=== PATIENT | male | born 1965 | race Caucasian/White ===

== ENCOUNTER 2019-09-04 13:14 | Emergency (ER) | payer MEDICARE, MEDICAID, SELFPAY ==
[2019-09-04 13:33] VITALS: BP 99/64; PULSE 98; RESP 18; TEMP 36.9; O2SAT 98; BMI 22.8
--- NOTE | 2019-09-04 14:41 | ED_ITS ---
Documented by User: [email or web address] Devi 09/05/19 07:01 HPI - Male Genitourinary General: Chief complaint: Abdominal Pain Stated complaint: flank pain, N,V Time Seen by Provider: 09/04/19 14:29 Source: patient Mode of arrival: ambulatory Limitations: no limitations History of Present Illness: HPI Narrative: Patient is a 54-year-old male who presents to ED today with a complaint of right flank pain over the past 3 to 4 days. Patient for some reason seems to think this is related to him spreading rat poison on weeds 3 to 4 days ago. He seems to think that some of this absorbed into his skin and is now causing his pain. He tells me he is having severe right flank pain with difficulty with urination. He reports nausea with 2 episodes of nonbloody vomit. Defecation habits have been normal. He is not running fevers. He denies history of kidney stones. He is not having testicular pain or swelling. MD Complaint: other (R flank pain; difficulty with urination) Onset (ago): day(s) Duration: constant Location: right flank Radiation: abdomen Severity: severe Quality: sharp and stabbing Relieving factors: none Exacerbating factors: urination Associated symptoms: Reports dysuria, nausea and vomiting Review of Systems Const: Denies: fever(s), chills, body aches, fatigue or malaise Eyes: Denies: change in vision, blurry vision, photophobia, floaters or seeing flashes Card: Denies: chest pain, palpitations, irregular heart rhythm, lightheadedness, syncope or dyspnea on exertion Resp: Denies: dyspnea, productive cough or pain on inspiration GI: Reports: abdominal pain, nausea and vomiting; Denies: coffee ground emesis, heartburn, early satiety, diarrhea, constipation, change in bowel habits, rectal swelling, rectal itching, change in stool character, hematochezia, mucus in stool, white/light colored stool or steatorrhea : Reports: flank pain, difficulty urinating, dysuria and urinary hesitancy; Denies: urinary frequency or urinary urgency Musc: Reports: back pain (R flank pain); Denies: neck pain or joint pain Skin/Breast: Denies: rash Neuro: Denies: headache(s), numbness in extremities, weakness in extremities or sensory changes PFSH ED PFSH: Social History Smoking and tobacco status: current every day smoker Physical Exam 2 Const: COMMON NORMALS: patient oriented x3, no limitations and alert GENERAL APPEARANCE: cooperative, in distress (due to pain-holding R flank ) and disheveled HENMT: COMMON NORMALS: normocephalic and atraumatic HEAD & SCALP: normocephalic and atraumatic Resp: COMMON NORMALS: normal respiratory effort and clear to auscultation bilaterally AUSCULTATION: clear to auscultation bilaterally Cardio: COMMON NORMALS: regular rate and regular rhythm RATE: regular rate RHYTHM: regular rhythm GI: COMMON NORMALS: Normal to inspection, nondistended, normoactive bowel sounds present, No hepatosplenomegaly present and no masses AUSCULTATION: Yes normoactive bowel sounds PALPATION: Yes Tenderness to palpation present (GI) (throughout abdomen but more so to R side; guarding present) and Yes No hepatosplenomegaly present : BLADDER/KIDNEY EXAM: Yes CVA tenderness on the right Back/Pelvis: GENERAL BACK: Yes CVA tenderness Extremity: COMMON NORMALS: normal to inspection GENERAL: Yes normal exam except as noted Neuro: COMMON NORMALS: patient oriented x3 SENSORIUM/ORIENTATION: Yes alert Skin: COMMON NORMALS: no rashes or lesions noted GENERAL SKIN EXAM: no rashes or lesions noted Course Vital Signs: Vital signs: Vital Signs Temperature 98.5 F 09/04/19 13:33 Pulse Rate 78 09/04/19 18:42 Respiratory Rate 18 09/04/19 18:42 Blood Pressure 114/75 09/04/19 18:42 Pulse Oximetry 100 09/04/19 18:42 MDM - Male Lab Data: Labs: Lab Results 09/04/19 09/04/19 09/04/19 Range/Units 14:30 14:30 15:00 WBC 13.4 H (4.0-10.0) 10^3/ uL RBC 3.76 L (4.1-5.3) 10^6/u L Hgb 11.8 (11.7-16.6) g/dL Hct 35.6 L (42.0-52.0) % MCV 94.7 H (80-94) fL MCH 31.4 (28.0-34.0) pg MCHC 33.1 (30.0-36.0) g/dL RDW 13.8 (12.1-15.1) % Plt Count 289 (130-400) 10^3/c mm MPV 8.5 (7.4-10.4) fL Neut % (Auto) 74.8 % Lymph % (Auto) 11.1 % [place] % (Auto) 13.2 % Eos % (Auto) 0.4 % Baso % (Auto) 0.1 % Neut # (Auto) 10.0 H (1.8-7.7) 10^3/u L Lymph # (Auto) 1.5 (0.8-4.8) 10^3/u L [place] # (Auto) 1.8 H (0.2-0.9) 10^3/u L Eos # (Auto) 0.1 (0.0-0.8) 10^3/u L Baso # (Auto) 0.0 (0.0-0.1) 10^3/u L Nucleated RBC % (a uto) 0 % Nucleated RBCs # 0.0 /100WBC PT (10.5-13.3) SECO NDS INR (0.8-1.2) APTT (23.9-36.7) SECO NDS Sodium (136-145) mmol/L Potassium (3.5-5.1) mmol/L Chloride (98-107) mmol/L Carbon Dioxide (22-29) mmol/L Anion Gap (5-19) BUN (6-20) mg/dL Creatinine (0.7-1.2) mg/dL GFR Calculation (90-130) mL/min Glucose (65-115) mg/dL Calculated Osmolal ity (285-295) mOsm/k g Lactate (0.5-2.2) mmol/L Calcium (8.5-10.5) mg/dL Total Bilirubin (0.15-1.2) mg/dL AST (0-40) U/L ALT (0-41) U/L Alkaline Phosphata se (40-130) IU/L Total Protein (6.6-8.7) g/dL Albumin (3.5-5.2) g/dL Globulin (1.3-4.6) g/dL Urine Color Yellow (Yellow) Urine Appearance Cloudy (CLEAR) Urine pH 5 (5-7) Ur Specific Gravit y 1.010 (1.005-1.030) Urine Protein Neg (Negative) Urine Glucose (UA) Norm (Normal) Urine Ketones Negative (Negative) Urine Blood Trace H (Negative) Urine Nitrate Negative (Negative) Urine Bilirubin Neg (NEGATIVE) Urine Urobilinogen 1 H (Negative) mg/dL Ur Leukocyte Geovanna ase 2+ H (Negative) Urine RBC 0-4 H (0-2) /hpf Urine WBC Too numerous to c nt H (0-5) /hpf Ur Squamous Epith Cells 0-4 H (0-5) Ur Transition Epit h Cell 0-4 /hpf Urine Bacteria 4+ H (NONE) Urine Opiates Scre en Positive H (Negative) ng/mL Ur Barbiturates Sc reen Negative (Negative) ng/mL Ur Phencyclidine S crn Negative (Negative) ng/mL Ur Amphetamines Sc reen Positive H (Negative) ng/mL U Benzodiazepines Scrn Negative (Negative) ng/mL Urine Cocaine Scre en Negative (Negative) ng/mL U Marijuana (THC) Screen Positive H (Negative) ng/mL 09/04/19 09/04/19 09/04/19 Range/Units 15:00 15:00 15:00 WBC (4.0-10.0) 10^3/ uL RBC (4.1-5.3) 10^6/u L Hgb (11.7-16.6) g/dL Hct (42.0-52.0) % MCV (80-94) fL MCH (28.0-34.0) pg MCHC (30.0-36.0) g/dL RDW (12.1-15.1) % Plt Count (130-400) 10^3/c mm MPV (7.4-10.4) fL Neut % (Auto) % Lymph % (Auto) % [place] % (Auto) % Eos % (Auto) % Baso % (Auto) % Neut # (Auto) (1.8-7.7) 10^3/u L Lymph # (Auto) (0.8-4.8) 10^3/u L [place] # (Auto) (0.2-0.9) 10^3/u L Eos # (Auto) (0.0-0.8) 10^3/u L Baso # (Auto) (0.0-0.1) 10^3/u L Nucleated RBC % (a uto) % Nucleated RBCs # /100WBC PT 13.50 H (10.5-13.3) SECO NDS INR 1.00 (0.8-1.2) APTT 34.4 (23.9-36.7) SECO NDS Sodium 129 L (136-145) mmol/L Potassium 4.4 (3.5-5.1) mmol/L Chloride 93 L (98-107) mmol/L Carbon Dioxide 24 (22-29) mmol/L Anion Gap 16.4 (5-19) BUN 20 (6-20) mg/dL Creatinine 0.9 (0.7-1.2) mg/dL GFR Calculation 88.3 L (90-130) mL/min Glucose 122 H (65-115) mg/dL Calculated Osmolal ity 266 L (285-295) mOsm/k g Lactate 0.9 (0.5-2.2) mmol/L Calcium 8.2 L (8.5-10.5) mg/dL Total Bilirubin 0.4 (0.15-1.2) mg/dL AST 43 H (0-40) U/L ALT 43 H (0-41) U/L Alkaline Phosphata se 133 H (40-130) IU/L Total Protein 6.6 (6.6-8.7) g/dL Albumin 3.5 (3.5-5.2) g/dL Globulin 3.1 (1.3-4.6) g/dL Urine Color (Yellow) Urine Appearance (CLEAR) Urine pH (5-7) Ur Specific Gravit y (1.005-1.030) Urine Protein (Negative) Urine Glucose (UA) (Normal) Urine Ketones (Negative) Urine Blood (Negative) Urine Nitrate (Negative) Urine Bilirubin (NEGATIVE) Urine Urobilinogen (Negative) mg/dL Ur Leukocyte Geovanna ase (Negative) Urine RBC (0-2) /hpf Urine WBC (0-5) /hpf Ur Squamous Epith Cells (0-5) Ur Transition Epit h Cell /hpf Urine Bacteria (NONE) Urine Opiates Scre en (Negative) ng/mL Ur Barbiturates Sc reen (Negative) ng/mL Ur Phencyclidine S crn (Negative) ng/mL Ur Amphetamines Sc reen (Negative) ng/mL U Benzodiazepines Scrn (Negative) ng/mL Urine Cocaine Scre en (Negative) ng/mL U Marijuana (THC) Screen (Negative) ng/mL Discharge Plan Discharge Patient Disposition: Home, Self-Care Clinical Impression: Pyelonephritis Condition: Stable Prescriptions: New cephalexin 500 mg capsule 500 mg PO TID 10 Days Qty: 30 RF: 0 hydrocodone-acetaminophen 5-325 mg tablet 1 tab PO Q8H PRN (Reason: pain, severe) Qty: 7 RF: 0 ondansetron HCl 4 mg tablet 4 mg PO Q8H PRN (Reason: nausea and vomiting) Qty: 7 RF: 0 No Action furosemide 40 mg tablet 40 mg PO DAILY RF: 0 carvedilol 12.5 mg tablet 12.5 mg PO BID RF: 0 spironolactone 25 mg tablet 25 mg PO DAILY RF: 0 simvastatin 40 mg tablet 40 mg PO DAILY RF: 0 levothyroxine 25 mcg tablet 25 mcg PO DAILY RF: 0 trazodone 100 mg tablet 100 mg PO BEDTIME PRN (Reason: Sleep) RF: 0 lisinopril 10 mg tablet 10 mg PO DAILY RF: 0 Discharge Orders: Discharge Order (Routine); Ordered 09/04/19 Ordered By: Tello Lowery Referrals: Mona Tan APN [Primary Care Provider] - Discharge Diet: Usual diet Discharge Activity: Increase activity as tolerated Patient Instructions: Urinary Tract Infection in Men (ED) Activity Restrictions/Additional Instructions: Drink plenty of water. Take medications as directed. Follow-up with primary care in 1 week for recheck. Return to the ER for worsening symptoms or inability to hold down medication. Discharge Date/Time: 09/04/19 18:40 Coding Level of Care Code ED A/C Technician for Chg 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 Documented by User: [email or web address] Ruth 09/04/19 18:39 HPI - Male Genitourinary General: Chief complaint: Abdominal Pain Stated complaint: flank pain, N,V Time Seen by Provider: 09/04/19 14:29 [facility] ED PFSH: Social History Smoking and tobacco status: current every day smoker Course ED course: 1700, received patient from Sonya Joseph, physician assistant casino shift manager. Awaiting CT report. Patient is believed to have a urinary tract infection with some mild pyelonephritis. After repeat CT report expect to release patient to home.[email or web address] Vital Signs: Vital signs: Vital Signs Temperature 98.5 F 09/04/19 13:33 Pulse Rate 78 09/04/19 18:42 Respiratory Rate 18 09/04/19 18:42 Blood Pressure 114/75 09/04/19 18:42 Pulse Oximetry 100 09/04/19 18:42 MDM - Male MDM Narrative: Medical decision making narrative: Patient came in today with abdominal pain and nausea and vomiting. Patient appears unwell. Patient had been given IV fluids and antibiotic and medication for pain and nausea. CT scan noted pyelonephritis. Urinalysis showed a large amount of white blood cells. Patient was medicated in the emergency room with Rocephin. Patient was reviewed care plan for home. Patient reported understanding of care plan and need for follow-up or return to the ER. Differential diagnosis included but not limited to UTI, pyelonephritis, appendicitis, renal cyst/abscess. Lab Data: Labs: Lab Results 09/04/19 09/04/19 09/04/19 Range/Units 14:30 14:30 15:00 WBC 13.4 H (4.0-10.0) 10^3/ uL RBC 3.76 L (4.1-5.3) 10^6/u L Hgb 11.8 (11.7-16.6) g/dL Hct 35.6 L (42.0-52.0) % MCV 94.7 H (80-94) fL MCH 31.4 (28.0-34.0) pg MCHC 33.1 (30.0-36.0) g/dL RDW 13.8 (12.1-15.1) % Plt Count 289 (130-400) 10^3/c mm MPV 8.5 (7.4-10.4) fL Neut % (Auto) 74.8 % Lymph % (Auto) 11.1 % [place] % (Auto) 13.2 % Eos % (Auto) 0.4 % Baso % (Auto) 0.1 % Neut # (Auto) 10.0 H (1.8-7.7) 10^3/u L Lymph # (Auto) 1.5 (0.8-4.8) 10^3/u L [place] # (Auto) 1.8 H (0.2-0.9) 10^3/u L Eos # (Auto) 0.1 (0.0-0.8) 10^3/u L Baso # (Auto) 0.0 (0.0-0.1) 10^3/u L Nucleated RBC % (a uto) 0 % Nucleated RBCs # 0.0 /100WBC PT (10.5-13.3) SECO NDS INR (0.8-1.2) APTT (23.9-36.7) SECO NDS Sodium (136-145) mmol/L Potassium (3.5-5.1) mmol/L Chloride (98-107) mmol/L Carbon Dioxide (22-29) mmol/L Anion Gap (5-19) BUN (6-20) mg/dL Creatinine (0.7-1.2) mg/dL GFR Calculation (90-130) mL/min Glucose (65-115) mg/dL Calculated Osmolal ity (285-295) mOsm/k g Lactate (0.5-2.2) mmol/L Calcium (8.5-10.5) mg/dL Total Bilirubin (0.15-1.2) mg/dL AST (0-40) U/L ALT (0-41) U/L Alkaline Phosphata se (40-130) IU/L Total Protein (6.6-8.7) g/dL Albumin (3.5-5.2) g/dL Globulin (1.3-4.6) g/dL Urine Color Yellow (Yellow) Urine Appearance Cloudy (CLEAR) Urine pH 5 (5-7) Ur Specific Gravit y 1.010 (1.005-1.030) Urine Protein Neg (Negative) Urine Glucose (UA) Norm (Normal) Urine Ketones Negative (Negative) Urine Blood Trace H (Negative) Urine Nitrate Negative (Negative) Urine Bilirubin Neg (NEGATIVE) Urine Urobilinogen 1 H (Negative) mg/dL Ur Leukocyte Geovanna ase 2+ H (Negative) Urine RBC 0-4 H (0-2) /hpf Urine WBC Too numerous to c nt H (0-5) /hpf Ur Squamous Epith Cells 0-4 H (0-5) Ur Transition Epit h Cell 0-4 /hpf Urine Bacteria 4+ H (NONE) Urine Opiates Scre en Positive H (Negative) ng/mL Ur Barbiturates Sc reen Negative (Negative) ng/mL Ur Phencyclidine S crn Negative (Negative) ng/mL Ur Amphetamines Sc reen Positive H (Negative) ng/mL U Benzodiazepines Scrn Negative (Negative) ng/mL Urine Cocaine Scre en Negative (Negative) ng/mL U Marijuana (THC) Screen Positive H (Negative) ng/mL 09/04/19 09/04/19 09/04/19 Range/Units 15:00 15:00 15:00 WBC (4.0-10.0) 10^3/ uL RBC (4.1-5.3) 10^6/u L Hgb (11.7-16.6) g/dL Hct (42.0-52.0) % MCV (80-94) fL MCH (28.0-34.0) pg MCHC (30.0-36.0) g/dL RDW (12.1-15.1) % Plt Count (130-400) 10^3/c mm MPV (7.4-10.4) fL Neut % (Auto) % Lymph % (Auto) % [place] % (Auto) % Eos % (Auto) % Baso % (Auto) % Neut # (Auto) (1.8-7.7) 10^3/u L Lymph # (Auto) (0.8-4.8) 10^3/u L [place] # (Auto) (0.2-0.9) 10^3/u L Eos # (Auto) (0.0-0.8) 10^3/u L Baso # (Auto) (0.0-0.1) 10^3/u L Nucleated RBC % (a uto) % Nucleated RBCs # /100WBC PT 13.50 H (10.5-13.3) SECO NDS INR 1.00 (0.8-1.2) APTT 34.4 (23.9-36.7) SECO NDS Sodium 129 L (136-145) mmol/L Potassium 4.4 (3.5-5.1) mmol/L Chloride 93 L (98-107) mmol/L Carbon Dioxide 24 (22-29) mmol/L Anion Gap 16.4 (5-19) BUN 20 (6-20) mg/dL Creatinine 0.9 (0.7-1.2) mg/dL GFR Calculation 88.3 L (90-130) mL/min Glucose 122 H (65-115) mg/dL Calculated Osmolal ity 266 L (285-295) mOsm/k g Lactate 0.9 (0.5-2.2) mmol/L Calcium 8.2 L (8.5-10.5) mg/dL Total Bilirubin 0.4 (0.15-1.2) mg/dL AST 43 H (0-40) U/L ALT 43 H (0-41) U/L Alkaline Phosphata se 133 H (40-130) IU/L Total Protein 6.6 (6.6-8.7) g/dL Albumin 3.5 (3.5-5.2) g/dL Globulin 3.1 (1.3-4.6) g/dL Urine Color (Yellow) Urine Appearance (CLEAR) Urine pH (5-7) Ur Specific Gravit y (1.005-1.030) Urine Protein (Negative) Urine Glucose (UA) (Normal) Urine Ketones (Negative) Urine Blood (Negative) Urine Nitrate (Negative) Urine Bilirubin (NEGATIVE) Urine Urobilinogen (Negative) mg/dL Ur Leukocyte Geovanna ase (Negative) Urine RBC (0-2) /hpf Urine WBC (0-5) /hpf Ur Squamous Epith Cells (0-5) Ur Transition Epit h Cell /hpf Urine Bacteria (NONE) Urine Opiates Scre en (Negative) ng/mL Ur Barbiturates Sc reen (Negative) ng/mL Ur Phencyclidine S crn (Negative) ng/mL Ur Amphetamines Sc reen (Negative) ng/mL U Benzodiazepines Scrn (Negative) ng/mL Urine Cocaine Scre en (Negative) ng/mL U Marijuana (THC) Screen (Negative) ng/mL Discharge Plan Discharge Patient Disposition: Home, Self-Care Clinical Impression: Pyelonephritis Condition: Stable Prescriptions: New cephalexin 500 mg capsule 500 mg PO TID 10 Days Qty: 30 RF: 0 hydrocodone-acetaminophen 5-325 mg tablet 1 tab PO Q8H PRN (Reason: pain, severe) Qty: 7 RF: 0 ondansetron HCl 4 mg tablet 4 mg PO Q8H PRN (Reason: nausea and vomiting) Qty: 7 RF: 0 No Action furosemide 40 mg tablet 40 mg PO DAILY RF: 0 carvedilol 12.5 mg tablet 12.5 mg PO BID RF: 0 spironolactone 25 mg tablet 25 mg PO DAILY RF: 0 simvastatin 40 mg tablet 40 mg PO DAILY RF: 0 levothyroxine 25 mcg tablet 25 mcg PO DAILY RF: 0 trazodone 100 mg tablet 100 mg PO BEDTIME PRN (Reason: Sleep) RF: 0 lisinopril 10 mg tablet 10 mg PO DAILY RF: 0 Discharge Orders: Discharge Order (Routine); Ordered 09/04/19 Ordered By: Tello Lowery Referrals: Mona Tan APN [Primary Care Provider] - Discharge Diet: Usual diet Discharge Activity: Increase activity as tolerated Patient Instructions: Urinary Tract Infection in Men (ED) Activity Restrictions/Additional Instructions: Drink plenty of water. Take medications as directed. Follow-up with primary care in 1 week for recheck. Return to the ER for worsening symptoms or inability to hold down medication. Discharge Date/Time: 09/04/19 18:40 Coding Level of Care Code ED A/C Technician for Alicia 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
[2019-09-04] MEDS: sodium chloride 0.9% 1,000 ML 999 ML IV (15:02)
[2019-09-04 15:03] VITALS: RESP 20
[2019-09-04] MEDS: ondansetron 2 mg/ML SDV 2 mL 4 MG IVP (15:03)
[2019-09-04] MEDS: morphine 4 mg/mL SDV 1 mL IVP (15:03)
[2019-09-04 15:05] LABS: Urine Appearance Cloudy (CLEAR); Urine Color Yellow (Yellow)
[2019-09-04 15:06] LABS: Add Urine Microscopic? YES; Bilirubin Urine Neg (NEGATIVE); Blood Urine Trace (Negative); Glucose Urine UA Norm (Normal); Ketones Urine Negative (Negative); Leukocyte Esterase Urine 2+ (Negative); Nitrate Urine Negative (Negative); Protein Urine Neg (Negative); Urobilinogen Urine 1 mg/dL (Negative); pH Urine 5 (5-7)
--- NOTE | 2019-09-04 15:18 | CTR_ITS ---
PROCEDURE INFORMATION: Exam: CT Abdomen And Pelvis With Contrast Exam date and time: 09/04/2019 3:21 PM Age: 54 years old Clinical indication: Abdominal pain; Additional info: R flank/abdominal pain TECHNIQUE: Imaging protocol: Computed tomography of the abdomen and pelvis with intravenous contrast. Radiation optimization: All CT scans at this facility use at least one of these dose optimization techniques: automated exposure control; mA and/or kV adjustment per patient size (includes targeted exams where dose is matched to clinical indication); or iterative reconstruction. Contrast material: OMNI 300; Contrast volume: 95 ml; Contrast route: IV COMPARISON: CT Abdomen/Pelvis Renal [id number] 02/03/2014 7:54 AM FINDINGS: There appear to be ill-defined areas of heterogeneous density in each kidney, mainly mid to upper portions, may indicate inflammation/infection, please correlate clinically. Gallbladder is very contracted. Liver, spleen, pancreas, and adrenal glands appear grossly unremarkable. Appendix appears grossly unremarkable. Bowel loops do not appear significantly dilated. A moderate amount of stool is demonstrated. No large amount of free fluid demonstrated. Abdominal aorta does not appear dilated. There is mild anterolisthesis of L5 on S1 from bilateral pars defects at L5. There are degenerative changes in the lumbar spine. Partly demonstrated is probable scarring at visualized left lung base and right middle lobe. Cardiac pacing leads are partly demonstrated. CT/CT abdomen pelvis w con* [id number] IMPRESSION: There appear to be ill-defined areas of heterogeneous density in each kidney, mainly mid to upper portions, may indicate inflammation/infection, please correlate clinically. A moderate amount of stool is demonstrated. There is mild anterolisthesis of L5 on S1 from bilateral pars defects at L5. Total DLP: 533.15 mGy-cm Radiation Dose CTDIVOL = (mGy): DLP = 533.15 (mGy-cm)
[2019-09-04 15:19] LABS: Basophils % 0.1 %; Eosinophils # 0.1 10^3/uL (0.0-0.8); Eosinophils % 0.4 %; Hematocrit 35.6 % (42.0-52.0); Hemoglobin 11.8 g/dL (11.7-16.6); Lymphocytes # 1.5 10^3/uL (0.8-4.8); Lymphocytes % 11.1 %; Mean Corpuscular HGB Conc 33.1 g/dL (30.0-36.0); Mean Corpuscular Hemoglobin 31.4 pg (28.0-34.0); Mean Corpuscular Volume 94.7 fL (80-94); Mean Platelet Volume 8.5 fL (7.4-10.4); Monocytes # 1.8 10^3/uL (0.2-0.9); Monocytes % 13.2 %; Neutrophils % 74.8 %; Nucleated Red Blood Cells % 0 %; Platelet Count 289 10^3/cmm (130-400); Red Blood Count 3.76 10^6/uL (4.1-5.3); Red Cell Distribution Width 13.8 % (12.1-15.1); White Blood Count 13.4 10^3/uL (4.0-10.0)
[2019-09-04 15:26] LABS: Add Urine Culture? Yes; Bacteria Urine 4+; RBC Urine 0-4 /hpf (0-2); Squamous Epithelial Cell Urine 0-4 (0-5); Transitional Epi Cells Urine 0-4 /hpf; WBC Urine TOO NUMEROUS TO CNT /hpf (0-5)
[2019-09-04 15:27] LABS: Partial Thromboplastin Time 34.4 SECONDS (23.9-36.7)
[2019-09-04 15:32] LABS: Lactate (Lactic Acid level) 0.9 mmol/L (0.5-2.2)
[2019-09-04 15:33] LABS: Alanine Aminotransferase 43 U/L (0-41); Albumin Level 3.5 g/dL (3.5-5.2); Alkaline Phosphatase 133 IU/L (40-130); Anion Gap 16.4 (5-19); Aspartate Amino Transferase 43 U/L (0-40); Blood Urea Nitrogen 20 mg/dL (6-20); Calcium 8.2 mg/dL (8.5-10.5); Carbon Dioxide 24 mmol/L (22-29); Chloride 93 mmol/L (98-107); Globulin 3.1 g/dL (1.3-4.6); Glomerular Filtration Rate 88.3 mL/min (90-130); Glucose 122 mg/dL (65-115); Osmolality Calculated 266 mOsm/kg (285-295); Potassium 4.4 mmol/L (3.5-5.1); Sodium 129 mmol/L (136-145); Total Bilirubin 0.4 mg/dL (0.15-1.2); Total Protein 6.6 g/dL (6.6-8.7)
[2019-09-04 15:35] LABS: Amphetamines Screen Urine Positive (Negative); Barbiturates Screen Urine Negative (Negative); Benzodiazepines Screen Urine Negative (Negative); Cocaine Screen Urine Negative (Negative); PCP Screen Urine Negative (Negative); THC Screen Urine Positive (Negative)
[2019-09-04] MEDS: cefTRIAXone 1,000 MG in sodium chloride 0.9% (plus) 50 ML 100 MG IV (15:54)
[2019-09-04] MEDS: iohexol 300 mg/mL 100 mL Btl IV (16:23)
[2019-09-04 16:51] VITALS: BP 97/63; PULSE 76; RESP 18; O2SAT 100
[2019-09-04 18:01] LABS: Opiate Screen Urine Positive (Negative)
[2019-09-04] MEDS: HYDROcodone-acetaminophen 5-325 mg Tablet 1 TAB PO (18:22)
[2019-09-04 18:42] VITALS: BP 114/75; PULSE 78; RESP 18; O2SAT 100
== END 2019-09-04 18:40 | disposition home or self-care (01) ==
PROVIDERS: Emergency Medicine; Physician Assistant; Emergency Provider Nurse Practitioner Family; PCP Nurse Practitioner Family
DX: N12 Tubulo-interstitial nephritis, not specified as acute or chronic (principal); F17.210 Nicotine dependence, cigarettes, uncomplicated; Z79.899 Other long term (current) drug therapy
CPT/HCPCS: 12345; 74177; 80053; 80306; 81001; 83605; 85025; 85610; 85730; 87040; 87077; 87086; 87186; 87205; 96365; 96375; 99283; 99284; J0696; J2270; J2405; J7030; Q9967

== ENCOUNTER 2020-04-15 23:05 | Emergency (ER) | payer MEDICARE, MEDICAID, SELFPAY ==
[2020-04-15 23:08] VITALS: BP 144/121; PULSE 92; RESP 18; TEMP 36.4; O2SAT 98; BMI 23.6
--- NOTE | 2020-04-15 23:12 | CTR_ITS ---
PROCEDURE INFORMATION: Exam: CT Head Without Contrast Exam date and time: 04/15/2020 11:14 PM Age: 55 years old Clinical indication: Injury or trauma; Blunt trauma (contusions or hematomas); Patient HX: Fall 10-12 feet off of ladder tonight. Sustained a blow to occiput. C/O head and neck pain. TECHNIQUE: Imaging protocol: Computed tomography of the head without contrast. Axial, coronal and sagittal reformatted images were created and reviewed. Radiation optimization: All CT scans at this facility use at least one of these dose optimization techniques: automated exposure control; mA and/or kV adjustment per patient size (includes targeted exams where dose is matched to clinical indication); or iterative reconstruction. COMPARISON: No relevant prior studies available. RADIATION DOSE METRICS: Total DLP (mGy-cm): 814.79 FINDINGS: Brain: No CT evidence of acute intracranial hemorrhage or acute territorial infarction. No significant mass effect or midline shift. Basal cisterns patent. Cerebral ventricles: Normal in size and configuration. Bones/joints: No acute osseous abnormality. Paranasal sinuses: Partial opacification of the ethmoid air cells frontal sinuses and left sphenoid sinus. Minimal maxillary and right sphenoid sinus mucosal thickening. Mastoid air cells: Grossly unremarkable. Soft tissues: Left parieto-occipital scalp swelling. CT/CT head wo con* [id number] IMPRESSION: 1. No CT evidence of acute intracranial pathology. 2. Additional findings, as above. Radiation Dose CTDIVOL = (mGy): DLP = 814.79 (mGy-cm)
--- NOTE | 2020-04-15 23:12 | CTR_ITS ---
PROCEDURE INFORMATION: Exam: CT Cervical Spine Without Contrast Exam date and time: 04/15/2020 11:14 PM Age: 55 years old Clinical indication: Injury or trauma; Blunt trauma; Prior surgery; Surgery type: Defibrillator; Patient HX: Fall 10-12 feet off of ladder tonight. Sustained a blow to occiput. C/O head and neck pain. TECHNIQUE: Imaging protocol: Computed tomography images of the cervical spine without contrast. Axial, coronal and sagittal reformatted images were created and reviewed. Radiation optimization: All CT scans at this facility use at least one of these dose optimization techniques: automated exposure control; mA and/or kV adjustment per patient size (includes targeted exams where dose is matched to clinical indication); or iterative reconstruction. COMPARISON: No relevant prior studies available. RADIATION DOSE METRICS: Total DLP (mGy-cm): 566.03 FINDINGS: Bones/joints: Normal cervical lordosis. Mildly comminuted, impacted fracture of the right occipital condyle, suboptimally evaluated due to motion artifact. No dislocation or subluxation. Alignment anatomic. Minimal dextroscoliosis. Vertebral body heights maintained. Discs/Spinal canal/Neural foramina: Mild multilevel spondylosis. No significant spinal canal or neural foraminal stenosis. Lungs: Grossly unremarkable. Soft tissues: Grossly unremarkable. CT/CT cervical spin wo con* [id number] IMPRESSION: 1. Mildly comminuted, impacted fracture of the right occipital condyle, suboptimally evaluated due to motion artifact. 2. Additional findings, as above. Radiation Dose CTDIVOL = (mGy): DLP = 566.03 (mGy-cm)
--- NOTE | 2020-04-15 23:15 | W.ED.TRAUMA ---
HPI - Trauma General: Chief Complaint: Trauma Stated Complaint: FELL OFF A ROOF Time Seen by Provider: 04/15/20 23:12 Source: patient Mode of arrival: ambulatory Limitations: no limitations History of Present Illness: HPI narrative: 55-year-old male states he fell 10 to 12 feet backwards off a roof just prior to arrival. States he hit his posterior head and has a severe headache currently. He rates headache a 7 out of 10. He denies any loss consciousness. He states he has slight neck pain as well. Denies any tingling or numbness in his arms. He has full strength in both arms. He denies any other injuries. MD complaint: fall Onset (ago): minute(s) Associated symptoms: Reports headache(s); Denies abdominal pain, back pain, chest pain, chills, dental pain, fever(s), nausea or vomiting Review of Systems Const: Denies: fever(s), chills, body aches or change in appetite Eyes: Denies: blurry vision or eye discomfort ENMT: Denies: throat pain or dental pain Card: Denies: chest pain Resp: Denies: dyspnea GI: Denies: abdominal pain, nausea, vomiting or diarrhea : Denies: dysuria Musc: Denies: neck pain or back pain Skin/Breast: Denies: rash Neuro: Reports: headache(s) Psych: Denies: depression [place]/Lymph: Denies: easy bruising All/Imm: Denies: urticaria PFSH ED PFSH: Social History Smoking and tobacco status: current every day smoker Physical Exam Const: COMMON NORMALS: no acute distress, patient oriented x3 and healthy appearing HENMT: COMMON NORMALS: normocephalic HEAD & SCALP: normocephalic OTHER: Tenderness to posterior head with contusion over right ear and posterior to right ear Eye: COMMON NORMALS: Equal, round and reactive pupils present and EOMs intact bilaterally PUPIL: Yes Equal, round and reactive pupils present Neck/C-Spine: COMMON NORMALS: full ROM and supple Chest: COMMONS NORMALS: normal inspection of the chest and normal palpation of entire chest wall Resp: COMMON NORMALS: normal respiratory effort, No retractions, No use of accessory muscles and clear to auscultation bilaterally AUSCULTATION: clear to auscultation bilaterally Cardio: COMMON NORMALS: regular rate, regular rhythm and No murmurs present (Cardio) RATE: regular rate RHYTHM: regular rhythm GI: COMMON NORMALS: Normal to inspection, nondistended, normoactive bowel sounds present, Soft to palpation, non-tender and no masses PALPATION: Yes Soft to palpation Extremity: COMMON NORMALS: normal to inspection and full ROM Neuro: COMMON NORMALS: patient oriented x3, moves all extremities and no focal motor deficits Psych: COMMON NORMALS: mental status grossly normal, Normal thought process present and cooperative THOUGHT PROCESS: Normal thought process present Skin: COMMON NORMALS: no rashes or lesions noted and no wounds GENERAL SKIN EXAM: no rashes or lesions noted MDM - Trauma MDM Narrative: Medical decision making narrative: Patient presents with an occipital condyle fracture on the right. Patient is neurologically intact. He has no numbness in his arms or loss of strength. Head CT and chest x-ray are normal. I spoke to neurosurgeon at [facility] informed that he does not need to be emergently transferred. We will place him in a [place] collar and have him follow-up with spine surgery. He is return if he has any worsening symptoms. He understands agrees to plan. Imaging Data^: CT Head: Attestation: I personally reviewed and interpreted this imaging study as follows: Radiologist's impression: [facility] [employer] [facility] [employer] [address] [address] Scan Report Signed Patient: Constantine Hooper Unit #: [id number] : 1965 Age/Sex: 55 / M ADM Date: 04/15/20 Loc: ER Room/Bed: Attending Dr: Ordering Provider/Ordering MD: Guillermina Redmond MD Date of Service: 04/15/20 Procedure(s): CT head wo con* [id number] Accession Number(s): [id number] Report Number: [id number] PROCEDURE INFORMATION: Exam: CT Head Without Contrast Exam date and time: 04/15/2020 11:14 PM Age: 55 years old Clinical indication: Injury or trauma; Blunt trauma (contusions or hematomas); Patient HX: Fall 10-12 feet off of ladder tonight. Sustained a blow to occiput. C/O head and neck pain. TECHNIQUE: Imaging protocol: Computed tomography of the head without contrast. Axial, coronal and sagittal reformatted images were created and reviewed. Radiation optimization: All CT scans at this facility use at least one of these dose optimization techniques: automated exposure control; mA and/or kV adjustment per patient size (includes targeted exams where dose is matched to clinical indication); or iterative reconstruction. COMPARISON: No relevant prior studies available. RADIATION DOSE METRICS: Total DLP (mGy-cm): 814.79 FINDINGS: Brain: No CT evidence of acute intracranial hemorrhage or acute territorial infarction. No significant mass effect or midline shift. Basal cisterns patent. Cerebral ventricles: Normal in size and configuration. Bones/joints: No acute osseous abnormality. Paranasal sinuses: Partial opacification of the ethmoid air cells frontal sinuses and left sphenoid sinus. Minimal maxillary and right sphenoid sinus mucosal thickening. Mastoid air cells: Grossly unremarkable. Soft tissues: Left parieto-occipital scalp swelling. CT/CT head wo con* [id number]: 1[address] No CT evidence of acute intracranial pathology. 2. Additional findings, as above. Other CT: Radiologist's impression: [employer] [address] [address] Scan Report Signed Patient: Constantine Hooper Unit #: [id number] : 1965 Age/Sex: 55 / M ADM Date: 04/15/20 Loc: ER Room/Bed: Attending Dr: Ordering Provider/Ordering MD: Guillermina Redmond MD Date of Service: 04/15/20 Procedure(s): CT cervical spin wo con* [id number] Accession Number(s): [id number] Report Number: [id number] PROCEDURE INFORMATION: Exam: CT Cervical Spine Without Contrast Exam date and time: 04/15/2020 11:14 PM Age: 55 years old Clinical indication: Injury or trauma; Blunt trauma; Prior surgery; Surgery type: Defibrillator; Patient HX: Fall 10-12 feet off of ladder tonight. Sustained a blow to occiput. C/O head and neck pain. TECHNIQUE: Imaging protocol: Computed tomography images of the cervical spine without contrast. Axial, coronal and sagittal reformatted images were created and reviewed. Radiation optimization: All CT scans at this facility use at least one of these dose optimization techniques: automated exposure control; mA and/or kV adjustment per patient size (includes targeted exams where dose is matched to clinical indication); or iterative reconstruction. COMPARISON: No relevant prior studies available. RADIATION DOSE METRICS: Total DLP (mGy-cm): 566.03 FINDINGS: Bones/joints: Normal cervical lordosis. Mildly comminuted, impacted fracture of the right occipital condyle, suboptimally evaluated due to motion artifact. No dislocation or subluxation. Alignment anatomic. Minimal dextroscoliosis. Vertebral body heights maintained. Discs/Spinal canal/Neural foramina: Mild multilevel spondylosis. No significant spinal canal or neural foraminal stenosis. Lungs: Grossly unremarkable. Soft tissues: Grossly unremarkable. CT/CT cervical spin wo con* [id number] IMPRESSION: 1. Mildly comminuted, impacted fracture of the right occipital condyle, suboptimally evaluated due to motion artifact. 2. Additional findings, as above. Discharge Plan Discharge Patient Disposition: Home Clinical Impression: Fall Fracture of occipital condyle Qualifiers: Encounter type: initial encounter Fracture type: closed Laterality: right Qualified Code(s): S02.113A - Unspecified occipital condyle fracture, initial encounter for closed fracture Condition: Stable Prescriptions: [place] 5-325 mg tablet 1 tab PO Q6H PRN (Reason: pain) Qty: 14 RF: 0 No Action furosemide 40 mg tablet 40 mg PO DAILY RF: 0 carvedilol 12.5 mg tablet 12.5 mg PO BID RF: 0 spironolactone 25 mg tablet 25 mg PO DAILY RF: 0 simvastatin 40 mg tablet 40 mg PO DAILY RF: 0 levothyroxine 25 mcg tablet 25 mcg PO DAILY RF: 0 trazodone 100 mg tablet 100 mg PO BEDTIME PRN (Reason: Sleep) RF: 0 lisinopril 10 mg tablet 10 mg PO DAILY RF: 0 hydrocodone-acetaminophen 5-325 mg tablet 1 tab PO Q8H PRN (Reason: pain, severe) Qty: 7 RF: 0 ondansetron HCl 4 mg tablet 4 mg PO Q8H PRN (Reason: nausea and vomiting) Qty: 7 RF: 0 Discharge Orders: Discharge ED (Routine); Ordered 04/16/20 Ordered By: Guillermina Redmond Referrals: Mona Tan APN [Primary Care Provider] - Bay Fink DO [Physician] - 1-3 days Discharge Diet: Advance as tolerated Discharge Activity: Resume usual activity Patient Instructions: Cervical Fracture (ED) Coding Level of Care Code ED 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
[2020-04-15] MEDS: HYDROcodone-acetaminophen 7.5-325 mg Tablet 1 TAB PO (23:17)
--- NOTE | 2020-04-15 23:58 | XR_ITS ---
WS: [id number] Portable AP upright chest, 04/16/2020 Clinical Data: fall Comparison: Portable chest, 03/01/2019. Findings: No nodules, masses or effusions are seen. The heart is normal. The pulmonary vascularity is not increased. No pneumonia or pneumothorax is seen. The permanent pacemaker remains in the same pos ition with the generator overlying the left axilla. XR/XR chest 1V portable [id number] Impression: Negative chest.
[2020-04-16 00:51] VITALS: BP 155/99; PULSE 88; RESP 17; O2SAT 96
[2020-04-16] MEDS: HYDROcodone-acetaminophen 7.5-325 mg Tablet 1 TAB PO (00:51)
[2020-04-16 01:03] LABS: Alkaline Phosphatase 58 IU/L (40-130); Blood Urea Nitrogen 15 mg/dL (6-20); Calcium 8.8 mg/dL (8.5-10.5); Carbon Dioxide 23 mmol/L (22-29); Chloride 98 mmol/L (98-107); Globulin 2.9 g/dL (1.3-4.6); Glomerular Filtration Rate 87.9 mL/min (90-130); Glucose 106 mg/dL (65-115); Osmolality Calculated 279 mOsm/kg (285-295); Sodium 134 mmol/L (136-145); Total Bilirubin 0.4 mg/dL (0.15-1.2); Total Protein 6.9 g/dL (6.6-8.7)
[2020-04-16 01:16] LABS: Alanine Aminotransferase 26 U/L (0-41); Anion Gap 17.2 (5-19); Aspartate Amino Transferase 38 U/L (0-40); Potassium 4.2 mmol/L (3.5-5.1)
--- NOTE | 2020-04-16 09:06 | DCPLANNER ---
sports team manager had message to schedule a follow up appointment for patient with ortho. sports team manager called the ortho clinic, spoke with Brielle, gave clinic patients information. sports team manager was told that patients information would be printed and reviewed. Clinic will call patient with appointment information.
--- NOTE | 2020-04-27 09:36 | DCPLANNER ---
net manager called the ortho clinic to confirm that a follow up had been scheduled for patient. net manager spoke with Linda, was told that clinic was unable to reach patient. net manager called phone number [phone], recording stating that this is not a working number. net manager called phone number [phone], left a voicemail for patient to return business case analyst phone call for appointment.
== END 2020-04-16 00:51 | disposition home or self-care (01) ==
PROVIDERS: Emergency Provider Emergency Medicine; PCP Nurse Practitioner Family
DX: S02.113A Unspecified occipital condyle fracture, initial encounter for closed fracture (principal); F17.210 Nicotine dependence, cigarettes, uncomplicated; W13.2XXA Fall from, out of or through roof, initial encounter
CPT/HCPCS: 12345; 70450; 71045; 72125; 80053; 85025; 99281; 99282; 99283; L0174

== ENCOUNTER → 2020-08-04 09:53 | Outpatient (BNVA) | payer MEDICARE, MEDICAID, SELFPAY | PROVIDERS: PCP Nurse Practitioner; Visit Provider Nurse Practitioner | DX: S02.113 Unspecified occipital condyle fracture (principal) | CPT/HCPCS: 72040 ==